=== PATIENT | male | born 2005 | race African-American/Black ===

== ENCOUNTER 2025-03-31 22:51 | Emergency (ER) | payer MEDICAID, OTHER ==
[~2025-03-31] VITALS: Ht 177.8 cm; Wt 128.7 kg
[2025-03-31 22:54] VITALS: BP 145/85; PULSE 99; RESP 20; TEMP 97; O2SAT 95
--- NOTE | 2025-03-31 23:34 | ED.PDOC ---
HPI Comments Pt presents with cc of laceration left middle finger. Pt states he was cleaning his gun when his finger got caught in the slide causing a laceration. Bleeding controlled at this time. Denies numbness, weakness or any other concerns. Chief Complaint: Laceration Time Seen by MD: 22:57 Reviewed Notes: Nurses Notes, Medications, Allergies Allergies: Coded Allergies: No Known Drug Allergy (Verified Allergy, Unknown, 03/31/25) Information Source: Patient Mode of Arrival: Ambulatory Complexity: Simple Laceration Length (cm): 2 Skin Type: Flap Past Medical History PAST MEDICAL HISTORY: Denies Surgical History: Denies all surgeries Family History Family History: Unknown Social History Smoker: Non-Smoker Alcohol: Denies ETOH Use Drugs: Denies Drug Use All Other Systems: Reviewed and Negative (see hpi) Physical Exam General Appearance: No Apparent Distress, Normal HEENT: Pharynx Normal Neck: Full Range of Motion, Non-Tender Respiratory: Lungs Clear, No Respiratory Distress, Normal Breath Sounds Cardiovascular: No Murmur, Normal Peripheral Pulses, Regular Rate/Rhythm Breast Exam: Deferred Gastrointestinal: Non Tender, Soft Genitalia: Deferred Pelvic: Deferred Rectal: Deferred Extremities: Normal capillary refill, Normal range of motion Musculoskeletal : Apperance: Normal Neurologic: Alert, No Motor Deficits, Normal Affect, Normal Mood, No Sensory Deficits Cerebellar Function: Normal Reflexes: NOT DONE Skin: Dry, Normal Color, Warm, Wounds (Avulsion to left 3rd digit distal aspect no noted foreign body bleeding controlled strength sensory motion intact cap refill less than 3 seconds) Lymphatic: No Adenopathy Was a procedure done? Was a procedure done?: No Differential diagnosis Generic Laceration: Hematoma, Fracture, Retained Foriegn Body, Neurovascular Injury, Tendon Injury, Laceration, Avulsion X-Ray, Labs, Meds, VS Vital Signs Date Time Temp Pulse Resp B/P (MAP) Pulse Ox O2 Delivery O2 Flow Rate FiO2 03/31/25 22:54 97.0 99 20 145/85 95 97.0 X-Ray, Labs, Meds, VS Comment No noted foreign body pressure dressing applied no noted bleeding no damage to nail. Advised on wound care. Advised to follow up with his PCP in 2-3 days as necessary. [id number] Tylenol or Motrin as needed for the pain per labeled dosing instructions. ER return precautions given patient indicates understanding agrees with discharge plan of care. Time of 1ST Reevaluation: 22:57 Reevaluation 1ST: Unchanged Time of 2ND Reevaluation: 23:34 Reevaluation 2ND: Improved Patient Education/Counseling: Diagnosis, Treatment, Need For Follow Up Family Education/Counseling: No Family Present Departure 1 Departure Time of Disposition: 23:34 Impression: Primary Impression: Fingernail avulsion, partial Qualified Codes: S61.309A - Unspecified open wound of unspecified finger with damage to nail, initial encounter Disposition: HOME / SELF CARE / HOMELESS Condition: Stable Discharged With: Self Critical Care Note Critical Care Time?: No Stability Stability form required: ZEINAB Eisenberg Mar 31, 2025 23:34
== END 2025-03-31 23:35 | disposition home or self-care (01) ==
LOC: ER 22:51
DX: S61.313A Laceration without foreign body of left middle finger with damage to nail, initial encounter (principal); X58.XXXA Exposure to other specified factors, initial encounter; Y93.89 Activity, other specified; Y92.89 Other specified places as the place of occurrence of the external cause; Y99.8 Other external cause status